=== PATIENT | female | born 1975 | race Caucasian/White ===

== ENCOUNTER → 2018-02-11 | Outpatient (CLI) | payer BC ==
--- NOTE | 2018-02-11 17:43 | Diagnostic Imaging Report ---
INDICATION: Abdominal pain, nausea and vomiting. COMPARISON: None. FINDINGS: Two views of the abdomen demonstrate moderate constipation without obstruction or ileus. There is no free air. Osseous structures are normal. IMPRESSION: Moderate constipation without obstruction or free air. Dictated by: Dictated on workstation # [id number]
== END ==
LOC: RAD 16:26
PROVIDERS: ATTEND Nurse Practitioner Family
DX: K59.00 Constipation, unspecified (principal); R11.2 Nausea with vomiting, unspecified
CPT/HCPCS: 74018

== ENCOUNTER 2021-05-06 17:47 | Observation (INO) | payer BC ==
[~2021-05-06] VITALS: Ht 154 cm; Wt 73.6 kg
[2021-05-06 18:27] LABS: BASOPHILS % (AUTO) 0 % (0-10); EOSINOPHILS # (AUTO) 0.1 10^3/uL (0.0-0.3); EOSINOPHILS % (AUTO) 1 % (0-10); HEMATOCRIT 40 % (35-52); HEMOGLOBIN 13.8 g/dL (11.5-16.0); LYMPHOCYTES # (AUTO) 4.2 10^3/uL (1.0-4.0); LYMPHOCYTES % (AUTO) 44 % (12-44); MEAN CORPUSCULAR HEMOGLOBIN 31 pg (25-34); MEAN CORPUSCULAR HGB CONC 34 g/dL (32-36); MEAN CORPUSCULAR VOLUME 91 fL (80-99); MEAN PLATELET VOLUME 11.5 fL (9.0-12.2); MONOCYTES # (AUTO) 0.5 10^3/uL (0.0-1.0); MONOCYTES % (AUTO) 5 % (0-12); NEUTROPHILS # (AUTO) 4.8 10^3/uL (1.8-7.8); NEUTROPHILS % (AUTO) 50 % (42-75); PLATELET COUNT 254 10^3/uL (130-400); WHITE BLOOD COUNT 9.7 10^3/uL (4.3-11.0)
[2021-05-06] MEDS ORDERED: ONDANSETRON 4 MG/2 ML (SDV) Z0FRAN IVP ONE (18:30)
[2021-05-06] MEDS ORDERED: KETOROLAC 30 MG/ML VIAL IVP ONE (18:30)
[2021-05-06] MEDS ORDERED: LACTATED RINGERS 1,000 ML IV ONE (18:30)
[2021-05-06 18:32] LABS: ALBUMIN 4.1 GM/DL (3.2-4.5); POTASSIUM 3.1 MMOL/L (3.6-5.0)
[2021-05-06 18:33] LABS: CALCIUM 9.5 MG/DL (8.5-10.1)
[2021-05-06 18:35] LABS: TOTAL PROTEIN 7.5 GM/DL (6.4-8.2)
[2021-05-06 18:37] LABS: BILIRUBIN,TOTAL 0.4 MG/DL (0.1-1.0)
[2021-05-06 18:38] LABS: CREATININE SERUM 1.19 MG/DL (0.60-1.30)
[2021-05-06 18:41] LABS: MAGNESIUM 1.9 MG/DL (1.6-2.4)
--- NOTE | 2021-05-06 18:53 | Diagnostic Imaging Report ---
INDICATION: Chest pain. COMPARISON: None available. TECHNIQUE: Single radiograph of the chest dated May 06, 2021. FINDINGS: The cardiac silhouette is within normal limits in size. No significant pulmonary vascular congestion. The lungs are clear. No pleural effusion. No pneumothorax. No acute osseous abnormality. IMPRESSION: No acute cardiopulmonary abnormality. Dictated by: Dictated on workstation # [id number]
[2021-05-06 19:14] LABS: PROTHROMBIN TIME PATIENT 13.3 SEC (12.2-14.7)
[2021-05-06] MEDS ORDERED: KCL 10 MEQ TAB (MICRO K) PO ONE (19:15)
--- NOTE | 2021-05-06 19:16 | ED Chest Pain ---
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 FELT LIKE SHE WAS GOING TO PASS OUT. AFTER STING. ON ADMIT C/O CHEST PAIN. ON ADMIT SHE APPEAR ANXIOUS. NO SOB. MONITOR SR. 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 The incident happened about 1 hour prior to arrival. After being stung she developed lightheadedness, diaphoresis, shortness of breath, chest pain, and nausea. She has some mild lingering chest pain at this time but other symptoms have subsided. Patient has been working outdoors on the farm when the incident occurred. She has no known cardiopulmonary problems. She denies any prior anaphylactic reactions to insect stings. She has history of von Willebrand's disease. Allergies and Home Medications Allergies Coded Allergies: codeine (Unverified Allergy, Mild, 12/04/09) Patient Home Medication List Home Medication List Reviewed: Yes Review of Systems Review of Systems Constitutional: see HPI EENTM: No Symptoms Reported Respiratory: See HPI Cardiovascular: See HPI Gastrointestinal: No Symptoms Reported Genitourinary: No Symptoms Reported Musculoskeletal: no symptoms reported Skin: see HPI Psychiatric/Neurological: No Symptoms Reported Endocrine: No Symptoms Reported Hematologic/Lymphatic: No Symptoms Reported Past Drfpbyj-Rtzkbo-Vntyoo Hx Patient Social History Tobacco Use?: No Substance use?: No Alcohol Use?: No Immunizations Up To Date First/Initial COVID19 Vaccinat: SEP Second COVID19 Vaccination Alex: OCT COVID19 Vaccine Sas Developer: VASHTI Past Medical History Surgeries: No Respiratory: No Cardiac: No Neurological: No : No Reproductive Disorders: No Genitourinary: No Gastrointestinal: No Musculoskeletal: No Endocrine: No HEENT: No Cancer: No Psychosocial: No Integumentary: No Blood Disorders: Yes (Von Willebrand's disease) Physical Exam Vital Signs Vital Signs - First Documented 05/06/21 17:47 Temp 35.0 Pulse 68 Resp 18 B/P (MAP) 115/72 (86) Pulse Ox 99 O2 Delivery Room Air Capillary Refill : Less Than 3 Seconds Height, Weight, BMI Height: '" Weight: lbs. oz. 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 Skin: Normal Color, Warm/Dry, Other (Large welt on the left lateral upper thigh with small blistering hemorrhagic center) Progress/Results/Core Measures Results/Orders Lab Results Laboratory Tests Test 05/06/21 04:26 05/06/21 17:50 05/06/21 18:54 05/06/21 20:50 Range/Units Serum Test, Qualitative NEGATIVE NEGATIVE White Blood Count 9.7 4.3-11.0 10^3/uL Red Blood Count 4.42 3.80-5.11 10^6/uL Hemoglobin 13.8 11.5-16.0 g/dL Hematocrit 40 35-52 % Mean Corpuscular Volume 91 80-99 fL Mean Corpuscular Hemoglobin 31 25-34 pg Mean Corpuscular Hemoglobin Concent 34 32-36 g/dL Red Cell Distribution Width 12.8 10.0-14.5 % Platelet Count 254 130-400 10^3/uL Mean Platelet Volume 11.5 9.0-12.2 fL Immature Granulocyte % (Auto) 0 % Neutrophils (%) (Auto) 50 42-75 % Lymphocytes (%) (Auto) 44 12-44 % Monocytes (%) (Auto) 5 0-12 % Eosinophils (%) (Auto) 1 0-10 % Basophils (%) (Auto) 0 0-10 % Neutrophils # (Auto) 4.8 1.8-7.8 10^3/uL Lymphocytes # (Auto) 4.2 H 1.0-4.0 10^3/uL Monocytes # (Auto) 0.5 0.0-1.0 10^3/uL Eosinophils # (Auto) 0.1 0.0-0.3 10^3/uL Basophils # (Auto) 0.0 0.0-0.1 10^3/uL Immature Granulocyte # (Auto) 0.0 0.0-0.1 10^3/uL Sodium Level 140 135-145 MMOL/L Potassium Level 3.1 L 3.6-5.0 MMOL/L Chloride Level 105 98-107 MMOL/L Carbon Dioxide Level 18 L 21-32 MMOL/L Anion Gap 17 H 5-14 MMOL/L Blood Urea Nitrogen 16 7-18 MG/DL Creatinine 1.19 0.60-1.30 MG/DL Estimat Glomerular Filtration Rate 49 BUN/Creatinine Ratio 13 Glucose Level 164 H 70-105 MG/DL Calcium Level 9.5 8.5-10.1 MG/DL Corrected Calcium 9.4 8.5-10.1 MG/DL Magnesium Level 1.9 1.6-2.4 MG/DL Total Bilirubin 0.4 0.1-1.0 MG/DL Aspartate Amino Transf (AST/SGOT) 17 5-34 U/L Alanine Aminotransferase (ALT/SGPT) 17 0-55 U/L Alkaline Phosphatase 52 40-136 U/L Myoglobin 54.8 10.0-92.0 NG/ML Troponin I < 0.028 0.037 H <0.028 NG/ML Total Protein 7.5 6.4-8.2 GM/DL Albumin 4.1 3.2-4.5 GM/DL Prothrombin Time 13.3 12.2-14.7 SEC INR Comment 1.0 0.8-1.4 Activated Partial Thromboplast Time 28 24-35 SEC My Orders Orders - ISAIAH ROYAL MD Cbc With Automated Diff (05/06/21 18:19) Magnesium (05/06/21 18:19) Chest 1 View, Ap/Pa Only (05/06/21 18:19) Ekg Tracing (05/06/21 18:19) Comprehensive Metabolic Panel (05/06/21 18:19) Myoglobin Serum (05/06/21 18:19) Protime With Inr (05/06/21 18:19) Partial Thromboplastin Time (05/06/21 18:19) O2 (05/06/21 18:19) Monitor-Rhythm Ecg Trace Only (05/06/21 18:19) Ed Iv/Invasive Line Start (05/06/21 18:19) Troponin I (05/06/21 18:19) Ondansetron Injection (Zofran Injectio (05/06/21 18:30) Ketorolac Injection (Toradol Injection) (05/06/21 18:30) Lactated Ringers (Lr 1000 Ml Iv Solution (05/06/21 18:30) Potassium Chloride (Tablet) (Klor Con Ta (05/06/21 19:15) Troponin I (05/06/21 20:50) Hcg,Qualitative Serum (05/06/21 21:50) Aspirin Chewable Tablet (Baby Aspirin Ch (05/06/21 22:00) Medications Given in ED Current Medications Medications Dose Ordered Sig/Keagan Route Start Time Stop Time Status Last Admin Dose Admin Aspirin 324 mg ONCE ONCE PO 05/06/21 22:00 05/06/21 22:01 DC 05/06/21 22:07 324 MG Vital Signs/I&O 05/06/21 17:47 Temp 35.0 Pulse 68 Resp 18 B/P (MAP) 115/72 (86) Pulse Ox 99 O2 Delivery Room Air 05/07/21 00:00 Intake Total 1000 ml Balance 1000 ml Blood Pressure Mean: 86 Progress Progress Note : Progress Note Patient was seen and examined. Due to the chest pain that did not seem co nsistent with symptoms of a wasp sting, chest pain work-up was pursued. Initial work-up was unremarkable and chest pain dissipated after use of Toradol. She was hydrated with IV fluids as her mucous membranes were dry. Potassium was replaced with a liter of LR and oral tablets. 4-hour troponin was obtained and was slightly elevated. Patient was given aspirin. Lovenox was not administered due to her von Willebrand's disease. Case was discussed with Dr. Bowens and Dr. Suh, and patient was admitted. Initial ECG Impression Date: May 06, 2021 Initial ECG Impression Time: 18:23 Initial ECG Rate: 76 Initial ECG Rhythm: Normal Sinus Initial ECG Intervals: Normal Initial ECG Impression: Normal Comment Normal sinus rhythm with no ST elevation or depression. No abnormal intervals or axis deviation. Diagnostic Imaging Diagonstic Imaging: Xray Plain Films/CT/US/NM/MRI: chest Comments NAME: DAR[facility]ASH [facility] REC#: [id number] PT STATUS: REG ER : 1975 PHYSICIAN: ISAIAH ROYAL MD ADMIT DATE: 05/06/21/ER Signed Date of Exam:05/06/21 CHEST 1 VIEW, AP/PA ONLY INDICATION: Chest pain. COMPARISON: None available. TECHNIQUE: Single radiograph of the chest dated May 06, 2021. FINDINGS: The cardiac silhouette is within normal limits in size. No significant pulmonary vascular congestion. The lungs are clear. No pleural effusion. No pneumothorax. No acute osseous abnormality. IMPRESSION: No acute cardiopulmonary abnormality. Dictated by: Dictated on workstation # [id number] Dict: 05/06/21 1848 Trans: 05/06/212006 [id number] Interpreted by: LUKE PATEL MD Electronically signed by: LUKE PATEL MD 05/06/212006 Departure Communication (Admissions) Time/Spoke to Admitting Phy: 22:15 Dr. Bowens Time/Spoke to Consulting Phy: 22:13 Dr. Suh Impression Primary Impression: Chest pain Qualified Codes: R07.9 - Chest pain, unspecified Additional Impression: Insect sting Qualified Codes: T63.481A - Toxic effect of venom of other arthropod, accidental (unintentional), initial encounter Disposition: ADMITTED INPATIENT Condition: Improved Admissions Decision to Admit Reason: Admit from ER (General) Decision to Admit/Date: May 07, 2021 Time/Decision to Admit Time: 22:10 Departure-Patient Inst. Referrals: HESHAM BOWENS DO (PCP) Primary Care Physician TRISTAN MENDIOLA APRN (Family) Primary Care Physician ISAIAH ROYAL MD May 06, 2021 19:16
[2021-05-06] MEDS ORDERED: ASPIRIN 81 MG CHEW (CHILDREN'S ASA) PO ONE (22:00)
[2021-05-06 23:55] VITALS: BP 154/90
[2021-05-07] MEDS ORDERED: NITROGLYCERIN 0.4 MG SL TABS BTL 25'S SL PRN (00:15)
[2021-05-07] MEDS ORDERED: morphine INJ 4 MG/ML 1 ML (VIAL/SYRINGE) IV PRN (00:15)
[2021-05-07] MEDS ORDERED: PATIENT MAY USE OWN MEDS, ALL MC SCH (00:15)
[2021-05-07] MEDS ORDERED: ONDANSETRON 4 MG/2 ML (SDV) Z0FRAN IVP PRN (00:15)
[2021-05-07 00:51] VITALS: BP 130/82
[2021-05-07 04:41] VITALS: BP 119/68
[2021-05-07 05:04] LABS: TRIGLYCERIDES 80 MG/DL (<150); VLDL CHOLESTEROL 16 MG/DL (5-40)
[2021-05-07 05:09] LABS: CHOLESTEROL 153 MG/DL (< 200); HDL CHOLESTEROL 34 MG/DL (40-60)
[2021-05-07 08:00] VITALS: BP 121/70
[2021-05-07] MEDS ORDERED: CATHETER FLUSH 10 ML SYR IV PRN (09:00)
[2021-05-07] MEDS ORDERED: ASPIRIN E.C. 81 MG (ECOTRIN) TAB PO SCH (09:00)
--- NOTE | 2021-05-07 09:08 | Consultation-Cardiology ---
HPI-Cardiology Cardiology Consultation Date of Consultation 05/07/21 Date of Admission Time Seen by Provider: 09:05 Indication: Chest pain HPI 45 years old lady with no significant past medical history, had a bee sting yesterday while mowing the lawn, try to continue mowing then she started to get lightheaded, became dizzy short of breath and diaphoretic and started to have chest pain described as pressure-like over her chest. Persisted until she arrived to the ER and started on IV fluid, patient reported that chest pain resolved without nitroglycerin, no similar episodes in the past. No history of allergy to bee sting Home Medications & Allergies Allergies: Coded Allergies: codeine (Unverified Allergy, Mild, 12/04/09) Home Medication List Reviewed: Yes AWJ-Lsuxqm-Yxhngs Hx Patient Social History Marital Status: Employed/Student: employed Have you traveled recently?: No Alcohol Use?: Yes Past Medical History No known past medical history Family Medical History Family Medical Hx Father has history of coronary artery disease in his 60s Review of Systems-General Review of Systems Constitutional: see HPI; No chills; diaphoresis, dizziness; No fever, No malaise, No weakness, No weight gain, No weight loss, No other EENTM: see HPI, no symptoms reported Respiratory: no symptoms reported, see HPI; No cough, No dyspnea on exertion, No hemoptysis, No orthopnea, No phlegm; short of breath; No stridor, No wheezing, No other Cardiovascular: see HPI, chest pain; No edema, No Hx of Intervention, No palpitations, No syncope, No vascular heart diseas, No other Gastrointestinal: no symptoms reported, see HPI Genitourinary: no symptoms reported, see HPI Musculoskeletal: no symptoms reported, see HPI Skin: see HPI Psychiatric/Neurological: No Symptoms Reported, See HPI Reviewed Test Results Reviewed Test Results Lab Laboratory Tests Test 05/06/21 17:50 05/06/21 18:54 05/06/21 20:50 05/07/21 04:26 Range/Units White Blood Count 9.7 4.3-11.0 10^3/uL Red Blood Count 4.42 3.80-5.11 10^6/uL Hemoglobin 13.8 11.5-16.0 g/dL Hematocrit 40 35-52 % Mean Corpuscular Volume 91 80-99 fL Mean Corpuscular Hemoglobin 31 25-34 pg Mean Corpuscular Hemoglobin Concent 34 32-36 g/dL Red Cell Distribution Width 12.8 10.0-14.5 % Platelet Count 254 130-400 10^3/uL Mean Platelet Volume 11.5 9.0-12.2 fL Immature Granulocyte % (Auto) 0 % Neutrophils (%) (Auto) 50 42-75 % Lymphocytes (%) (Auto) 44 12-44 % Monocytes (%) (Auto) 5 0-12 % Eosinophils (%) (Auto) 1 0-10 % Basophils (%) (Auto) 0 0-10 % Neutrophils # (Auto) 4.8 1.8-7.8 10^3/uL Lymphocytes # (Auto) 4.2 H 1.0-4.0 10^3/uL Monocytes # (Auto) 0.5 0.0-1.0 10^3/uL Eosinophils # (Auto) 0.1 0.0-0.3 10^3/uL Basophils # (Auto) 0.0 0.0-0.1 10^3/uL Immature Granulocyte # (Auto) 0.0 0.0-0.1 10^3/uL Sodium Level 140 135-145 MMOL/L Potassium Level 3.1 L 3.6-5.0 MMOL/L Chloride Level 105 98-107 MMOL/L Carbon Dioxide Level 18 L 21-32 MMOL/L Anion Gap 17 H 5-14 MMOL/L Blood Urea Nitrogen 16 7-18 MG/DL Creatinine 1.19 0.60-1.30 MG/DL Estimat Glomerular Filtration Rate 49 BUN/Creatinine Ratio 13 Glucose Level 164 H 70-105 MG/DL Calcium Level 9.5 8.5-10.1 MG/DL Corrected Calcium 9.4 8.5-10.1 MG/DL Magnesium Level 1.9 1.6-2.4 MG/DL Total Bilirubin 0.4 0.1-1.0 MG/DL Aspartate Amino Transf (AST/SGOT) 17 5-34 U/L Alanine Aminotransferase (ALT/SGPT) 17 0-55 U/L Alkaline Phosphatase 52 40-136 U/L Myoglobin 54.8 10.0-92.0 NG/ML Troponin I < 0.028 0.037 H < 0.028 <0.028 NG/ML Total Protein 7.5 6.4-8.2 GM/DL Albumin 4.1 3.2-4.5 GM/DL Prothrombin Time 13.3 12.2-14.7 SEC INR Comment 1.0 0.8-1.4 Activated Partial Thromboplast Time 28 24-35 SEC Triglycerides Level 80 <150 MG/DL Cholesterol Level 153 < 200 MG/DL LDL Cholesterol Direct 119 1-129 MG/DL VLDL Cholesterol 16 5-40 MG/DL HDL Cholesterol 34 L 40-60 MG/DL Physical Exam Physical Exam Vital Signs Vital Signs - First Documented 05/06/21 17:47 Temp 35.0 Pulse 68 Resp 18 B/P (MAP) 115/72 (86) Pulse Ox 99 O2 Delivery Room Air Capillary Refill : Less Than 3 Seconds Height, Weight, BMI Height: '" Weight: lbs. oz. 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 No acute EKG changes. Echocardiogram was normal, planning to evaluate stress test Shortness of breath after bee sting probably allergic reaction. Feeling better at this time. Continue to monitor Family history of atherosclerosis Allergy to codeine MARGARET LAKHANI MD May 07, 2021 09:08
[2021-05-07 09:37] VITALS: BP 132/95
--- NOTE | 2021-05-07 11:10 | Cardiology Stress Test Report ---
Stress Test Report Date of Procedure/Referring: Date of Procedure: May 07, 2021 PCP Tiffani Boewns DO Admitting Physician Tiffani Bowens DO Indications: CP Baseline Heart Rate: 80 Baseline Blood Pressure: Blood Pressure Systolic: 132 Blood Pressure Diastolic: 95 Vital Signs Date Time Temp Pulse Resp B/P (MAP) Pulse Ox O2 Delivery O2 Flow Rate FiO2 05/06/21 17:47 35.0 68 18 115/72 (86) 99 Room Air Baseline Vital Signs Vital Signs Date Time Temp Pulse Resp B/P (MAP) Pulse Ox O2 Delivery O2 Flow Rate FiO2 05/06/21 17:47 35.0 68 18 115/72 (86) 99 Room Air Baseline EKG: Baseline EKG: NSR Summary: After explaining the procedure and details to the patient, she signed the consent and was brought to the stress nuclear laboratory. Patient exercised on standard Gadiel protocol, EKG, heart rate and blood pressure were monitored continuously, resting and stress doses of radio tracer were injected, imaging was acquired and reviewed in the short axis, horizontal long axis and vertical long axis views Patient was able to exercise for a total of 8 minutes on Gadiel protocol, METs 9.7 Maximum heart rate 154 Maximum blood pressure 146/77 Stress EKG, Minimal nondiagnostic changes Recovery EKG, Return to baseline TID: 0.93 SSS: 4 SDS: 3 EF: 62 Conclusion: 1. Good exercise tolerance for a total of 8 minutes on standard Gadiel protocol, 9.7 METS achieving 88% of maximal expected heart rate 2. Appropriate heart rate and blood pressure response to exercise return to baseline during recovery 3. No significant EKG changes with exercise return to baseline during recovery 4. Extracardiac attenuation with mild decrease uptake at the base of the anterior wall with subtle reversibility, probably secondary to breast at tenuation, no significant ischemia or infarction on SPECT images 5. Normal left ventricular size, EF 62% MARGARET LAKHANI MD May 07, 2021 11:10
[2021-05-07] MEDS ORDERED: PHEN37.58 PO (11:25)
[2021-05-07] MEDS ORDERED: LORA10TA7 PO (11:25)
[2021-05-07] MEDS ORDERED: ACET325T38 PO (11:25)
[2021-05-07 12:00] VITALS: BP 138/83
[2021-05-07] MEDS ORDERED: EPIN0.3P3 IJ (12:37)
--- NOTE | 2021-05-10 10:36 | Physician Query-Final Dx ---
RONIT RENEE 05/10/21 1036: Final Diagnosis Give Final Diagnosis Please give Final Diagnosis KEITH BROCK 05/11/21 1408: RONIT RENEE May 10, 2021 10:36 KEITH BROCK May 11, 2021 14:08
--- NOTE | 2021-05-16 18:15 | Short Stay Summary ---
History of Present Illness History of Present Illness Reason for visit/HPI This is a 45 year old female who presented to the emergency room after being stung by a bee and then experiencing dizziness, chest pain, diaphoresis and nausea. She was found to be having an allergic reaction to the bee sting but her troponin-I was mildly elevated. Her chest pain resolved on its own without nitro but it was decided to admit her for further monitoring and evaluation. Date of Admission May 06, 2021 at 22:15 Date of Discharge May 07, 2021 at 13:00 Time Seen by Provider: 12:30 Attending Physician Tiffani Simpson DO Admitting Physician Tiffani Simpson DO Consult Allergies and Home Medications Allergies Coded Allergies: codeine (Unverified Allergy, Mild, 12/04/09) Patient Home Medication List Home Medication List Reviewed: Yes Acetaminophen (Tylenol) 325 Mg Tablet, 650 MG PO Q6H PRN for PAIN-MILD (1-4), (Reported) Entered as Reported by: NETO PERES on 05/07/211124 Last Action: Reviewed Epinephrine (Epipen 2-Wayne) 0.3 Mg/0.3 Ml Auto.injct, 0.3 MG IJ PRN Prescribed by: TIFFANI SIMPSON on 05/07/21 1237 Loratadine (Loratadine) 10 Mg Tablet, 10 MG PO DAILY PRN for ALLERGIES, (Reported) Entered as Reported by: NETO PERES on 05/07/211124 Last Action: Reviewed Phentermine HCl (Phentermine HCl) 37.5 Mg Tablet, 37.5 MG PO DAILY, (Reported) Entered as Reported by: NETO PERES on 05/07/211124 Last Action: Reviewed Past Elweeef-Kzqzem-Espnrd Hx Patient Social History Marrital Status: Employed/Student: employed Have you traveled recently?: No Alcohol Use?: Yes Pt feels they are or have been: No Surgeries No Respiratory No Cardiovascular No Neurological No Reproductive System : No Hx Reproductive Disorders: No Genitourinary No Gastrointestinal No Musculoskeletal No Endocrine History of Endocrine Disorders: No HEENT History of HEENT Disorders: No Cancer No Psychosocial History of Psychiatric Problem: No Integumentary History of Skin or Integumenta: No Blood Transfusions History of Blood Disorders: Yes (Von Willebrand's disease) Review of Systems Constitutional: weakness EENTM: No see HPI, No no symptoms reported, No ear discharge, No hearing loss, No ear pain, No blurred vision, No double vision, No eye pain, No tearing, No vision loss, No dental problems, No hoarseness, No mouth pain, No mouth swelling, No epistaxis, No nose congestion, No nose pain, No throat pain, No throat swelling, No other Cardiovascular: chest pain Gastrointestinal: nausea Genitourinary: No no symptoms reported, No see HPI, No decreased output, No discharge, No dysuria, No frequency, No hematuria, No hesitancy, No incontinence, No nocturia, No pain, No other Musculoskeletal: muscle weakness Skin: rash Psychiatric/Neurological: Denies No Symptoms Reported, Denies See HPI, Denies Anxiety, Denies Depressed, Denies Emotional Problems, Denies Headache, Denies Numbness, Denies Paresthesia, Denies Pre-Existing Deficit, Denies Seizure, Denies Tingling, Denies Tremors, Denies Weakness, Denies Other Physical Exam Vital Signs Capillary Refill : Less Than 3 Seconds Height, Weight, BMI Height: '" Weight: lbs. oz. kg; 31.03 BMI Method: General Appearance: No Apparent Distress HEENT: Normal ENT Inspection Neck: Normal Inspection, Non Tender, Supple Respiratory: Lungs Clear Cardiovascular: Regular Rate, Rhythm Gastrointestinal: Normal Bowel Sounds, Non Tender, Soft Rectal: Deferred Back: No CVA Tenderness Extremity: Non Tender, No Calf Tenderness, No Pedal Edema Neurologic/Psychiatric: Alert, Oriented x3 Skin: Warm/Dry Clinical Quality Measures Admission Status Admission Status: Observation Short Stay Diagnosis Discharge Diagnosis-Short Stay Final Discharge Diagnosis: 1. Chest Pain with elevated troponin-I due to vasovagal reaction after allergic reaction to be sting--negative ECHO and negative stress test 2. Allergic Reaction to Bee Sting Conclusion Conclusion/Plan This is a 45 year old female who presented to the emergency room after being stung by a bee and then experiencing dizziness, chest pain, diaphoresis and na usea. She was found to be having an allergic reaction to the bee sting but her troponin-I was mildly elevated. Her chest pain resolved on its own without nitro but it was decided to admit her for further monitoring and evaluation. She had no further chest pain. Her repeat troponin-I was negative. Her ECHO was normal as well as a normal stress test. She will be sent home with [facility] for any further bee sting exposure and is instructed to use benadryl prn for bee stings as well. TIFFANI SIMPSON DO May 16, 2021 18:15
== END 2021-05-07 13:08 | disposition home or self-care (01) ==
LOC: EDUNIT# 17:47 → ER 17:51 → 4TH 22:15 → UNDOADMOB 22:15 → 4TH 23:55 → UNDODISOB 05-07 13:00
PROVIDERS: ADMIT Family Medicine; ATTEND Family Medicine
DX: T63.441A Toxic effect of venom of bees, accidental (unintentional), initial encounter (principal); R07.9 Chest pain, unspecified; R51.9 Headache, unspecified; R74.8 Abnormal levels of other serum enzymes; Z79.899 Other long term (current) drug therapy; Z82.49 Family history of ischemic heart disease and other diseases of the circulatory system
CPT/HCPCS: 71045; 78452; 80053; 80061; 83735; 83874; 84484 ×2; 84703; 85025; 85610; 85730; 93005 ×2; 93017; 93041; 93306; 96374; 96375; 99284; A9502; G0378; 36415

== ENCOUNTER 2023-03-07 08:17 | Emergency (ER) | payer BC ==
[~2023-03-07] VITALS: Ht 154 cm; Wt 61.0 kg
[~2023-03-07 08:17] MED LIST: ACET325T38 PO; EPIN0.3P3 IJ; LORA10TA7 PO; PHEN37.58 PO
[2023-03-07] MEDS ORDERED: LACTATED RINGERS 1,000 ML IV STA (08:32)
[2023-03-07] MEDS ORDERED: L.E.T. SOLUTION 3 ML SYR TOP ONE (08:45)
[2023-03-07] MEDS ORDERED: TETANUS,DIPTH,PERTUSS P/F (BOOSTRIX) 0.5 ML VIAL IM ONE (08:45)
--- NOTE | 2023-03-07 08:46 | ED General ---
General Chief Complaint: Laceration Stated Complaint: STUNG BY WASPS | PASSED OUT | HIT HEAD Nursing Triage Note: ARRIVED VIA AMB TO ROOM 07. PT STATES SHE WAS STUNG BY A WASP ON HER LEFT LOWER LEG AT 7AM. PT WAS TRYING TO ADMINISTER EPI PIN SHE PASSED OUT AND HIT HER HEAD ON THE KITCHEN FLOOR CAUSING A LACERATION. Source of Information: Patient Exam Limitations: No Limitations History of Present Illness Date Seen by Provider: Mar 07, 2023 Time Seen by Provider: 08:25 Initial Comments Here with report of being stung by a wasp on the left lower leg. She did have a problem with wasp sting previously or bee sting previously. [place] the wasp came out of one of the pipes on the gate and stung her. She is able to make her way back to the house and then started feeling weak. She tried to get her EpiPen and ultimately was able to do that but she is not sure that it fired right. During this process she passed out and hit the back of her head. She ultimately was able to get the EpiPen to work she thinks. She feels weak currently but a little better. Does have a laceration to the posterior scalp with bleeding controlled. States last time this happened a few years ago she had to get some IV fluid and then she was better and she was found to have lower potassium at that time. She is unsure about her tetanus shot. Denies nausea, vomiting, fever, breathing problems or chest pain currently. Timing/Duration: 1/2 Hour Severity: Moderate Associated Systoms: No Chest Pain, No Cough, No Fever/Chills, No Headaches, No Nausea/Vomiting, No Shortness of Air; Weakness Allergies and Home Medications Allergies Coded Allergies: codeine (Unverified Allergy, Mild, 12/04/09) Patient Home Medication List Home Medication List Reviewed: Yes Acetaminophen (Tylenol) 325 Mg Tablet, 650 MG PO Q6H PRN for PAIN-MILD (1-4), (Reported) Entered as Reported by: NETO PERES on 05/07/21 1125 Epinephrine (Epipen 2-Wayne) 0.3 Mg/0.3 Ml Auto.injct, 0.3 MG IJ PRN Prescribed by: HESHAM SIMPSON on 05/07/21 1237 Loratadine (Loratadine) 10 Mg Tablet, 10 MG PO DAILY PRN for ALLERGIES, (Reported) Entered as Reported by: NETO PERES on 05/07/211124 Phentermine HCl (Phentermine HCl) 37.5 Mg Tablet, 37.5 MG PO DAILY, (Reported) Entered as Reported by: NETO PERES on 05/07/211124 Review of Systems Review of Systems Constitutional: see HPI; No chills, No fever EENTM: No mouth swelling, No nose congestion, No throat swelling Respiratory: No cough, No short of breath Cardiovascular: No chest pain, No edema Gastrointestinal: No nausea, No vomiting Genitourinary: no symptoms reported Musculoskeletal: No back pain, No neck pain Skin: lesions; No pruritus, No rash Psychiatric/Neurological: Denies Headache; Weakness Past Mnsxipm-[id number]-[id number] Hx Patient Social History Tobacco Use?: No Substance use?: No Alcohol Use?: No Immunizations Up To Date First/Initial COVID19 Vaccinat: SEP Second COVID19 Vaccination Alex: Oct COVID19 Vaccination Date: SEP Past Medical History Surgeries: No Respiratory: No Cardiac: No Neurological: No Reproductive Disorders: No Genitourinary: No Gastrointestinal: No Musculoskeletal: No Endocrine: No HEENT: No Cancer: No Psychosocial: No Integumentary: No Blood Disorders: Yes (Von Willebrand's disease) Family Medical History Reviewed Nursing Family Hx No Pertinent Family Hx Physical Exam Vital Signs Vital Signs - First Documented 03/07/23 08:20 Temp 35.5 Pulse 75 Resp 16 Pulse Ox 100 O2 Delivery Room Air Capillary Refill : Less Than 3 Seconds Height, Weight, BMI Height: '" Weight: lbs. oz. kg; 25.00 BMI Method: General Appearance: WD/WN, Mild Distress HEENT: PERRL/EOMI, TMs Normal, Pharynx Normal Neck: Full Range of Motion, Normal Inspection, Non Tender, Supple Respiratory: Lungs Clear, Normal Breath Sounds Cardiovascular: Regular Rate, Rhythm, No Murmur Gastrointestinal: Non Tender, Soft Extremity: Normal Range of Motion, Non Tender Neurologic/Psychiatric: Alert, Oriented x3, No Motor/Sensory Deficits Skin: Warm/Dry; No Rash; Other (3 cm lesion posterior scalp just left of midline with bleeding controlled. Sting site to lower leg is not significantly inflamed currently.) Procedures/Interventions Wound Location: Scalp Other Wound Location Posterior scalp left of midline Wound Length (cm): 5 Wound's Depth, Shape: irregular Wound Explored: contaminated Irrigated w/ Saline (ccs): 150 Betadine Prep?: Yes (Jose A) Anesthesia: 1% Lidocaine Volume Anesthetic (ccs): 6 Wound Debrided: minimal Staple Repair: Stapler 35W Number of Sutures: 8 Layer Closure?: 1 Number Deep Layer Sutures: 0 Sterile Dressing Applied?: Yes Progress Wound copiously cleaned after application of topical LET. Wound noted to be more extensive than initially thought and lidocaine 1% infiltrated around wound. Wound copiously scrubbed and irrigated with normal saline. Closed with stapler with good approximation. Bleeding controlled without complications. Covered with antibiotic ointment and dressing. Progress/Results/Core Measures Suspected Sepsis SIRS Temperature: Pulse: 75 Respiratory Rate: 16 Laboratory Tests 03/07/23 08:54: White Blood Count 16.3H Blood Pressure / Mean: Laboratory Tests 03/07/23 08:54: Creatinine 1.08, Platelet Count 128L Results/Orders Lab Results Laboratory Tests Test 03/07/23 08:54 Range/Units White Blood Count 16.3 H 4.3-11.0 10^3/uL Red Blood Count 5.18 H 3.80-5.11 10^6/uL Hemoglobin 16.6 H 11.5-16.0 g/dL Hematocrit 50 35-52 % Mean Corpuscular Volume 97 80-99 fL Mean Corpuscular Hemoglobin 32 25-34 pg Mean Corpuscular Hemoglobin Concent 33 32-36 g/dL Red Cell Distribution Width 12.6 10.0-14.5 % Platelet Count 128 L 130-400 10^3/uL Mean Platelet Volume 11.2 9.0-12.2 fL Immature Granulocyte % (Auto) 1 % Neutrophils (%) (Auto) 82 H 42-75 % Lymphocytes (%) (Auto) 14 12-44 % Monocytes (%) (Auto) 3 0-12 % Eosinophils (%) (Auto) 0 0-10 % Basophils (%) (Auto) 0 0-10 % Neutrophils # (Auto) 13.3 H 1.8-7.8 10^3/uL Lymphocytes # (Auto) 2.3 1.0-4.0 10^3/uL Monocytes # (Auto) 0.4 0.0-1.0 10^3/uL Eosinophils # (Auto) 0.1 0.0-0.3 10^3/uL Basophils # (Auto) 0.0 0.0-0.1 10^3/uL Immature Granulocyte # (Auto) 0.2 H 0.0-0.1 10^3/uL Neutrophils % (Manual) 78 % Lymphocytes % (Manual) 13 % Monocytes % (Manual) 6 % Eosinophils % (Manual) 0 % Basophils % (Manual) 0 % Band Neutrophils 3 % Clumped Platelets OCCASIONAL Percent Immature Platelet Fraction 12.3 H 0.0-7.6 % Blood Morphology Comment NORMAL Sodium Level 138 135-145 MMOL/L Potassium Level 3.2 L 3.6-5.0 MMOL/L Chloride Level 105 98-107 MMOL/L Carbon Dioxide Level 16 L 21-32 MMOL/L Anion Gap 17 H 5-14 MMOL/L Blood Urea Nitrogen 17 7-18 MG/DL Creatinine 1.08 0.60-1.30 MG/DL Estimat Glomerular Filtration Rate 63 BUN/Creatinine Ratio 16 Glucose Level 175 H 70-105 MG/DL Calcium Level 9.3 8.5-10.1 MG/DL My Orders Orders - ISAC STALLWORTH MD Basic Metabolic Panel (03/07/23 08:32) Cbc With Automated Diff (03/07/23 08:32) Lactated Ringers (Lr 1000 Ml Iv Solution (03/07/23 08:32) Ed Iv/Invasive Line Start (03/07/23 08:32) Let Solution (Let Solution) (03/07/23 08:45) Dipht,Pertuss(Acell),Tet Adult (Boostrix (03/07/23 08:45) Ct Head Wo (03/07/23 08:49) Manual Differential (03/07/23 08:54) Lidocaine 1% Inj 20 Ml (Xylocaine 1% Inj (03/07/23 09:31) Medications Given in ED Current Medications Medications Dose Ordered Sig/Keagan Route Start Time Stop Time Status Last Admin Dose Admin Diphtheria/ Tetanus/Acell Pertussis 0.5 ml ONCE ONCE IM 03/07/23 08:45 03/07/23 08:46 DC 03/07/23 08:41 0.5 ML Lidocaine HCl 20 ml STK-MED ONCE .ROUTE 03/07/23 09:31 03/07/23 09:33 DC 03/07/23 09:47 20 ML Tetracaine/ Epinephrine/ Lidocaine 3 ml ONCE ONCE TOP 03/07/23 08:45 03/07/23 08:46 DC 03/07/23 08:39 3 ML Vital Signs/I&O 03/07/23 08:20 Temp 35.5 Pulse 75 Resp 16 B/P (MAP) Pulse Ox 100 O2 Delivery Room Air Capillary Refill : Less Than 3 Seconds Progress Note : Progress Note Seen and evaluated. Given patient's report of weakness, we will go ahead and get IV and check basic labs and give 1 L LR. I have reviewed previous history when she had lasting in 2020. She had work-up at that time. It was noted that she does have von Willebrand's disease. I did discuss with her about CT of the head given the head injury. Initially she did not want to do that which was reasonable but on finding of the history of von Willebrand's, I think this is more important. I did discuss this with the patient and she agreed and we will go ahead and get CT of her head. Monitor patient. Differential diagnosis includes intracranial hemorrhage, concussion, scalp laceration, electrolyte abnormality, dehydration 0954: CT reviewed by me and shows no intracranial hemorrhage on my interpretation. Radiology report reviewed. Wound cleaned and closed with stapler. I did discuss with the patient and her sister regarding outpatient instructions and return precautions especially in light of concussion and von Willebrand's disease. Both verbalized understanding. Discharged home with return precautions. Patient verbalized understanding instructions and agreement with plan. I will represcribe EpiPen given her wasp allergy and I will prescribe ondansetron for nausea due to concussion concerns. Diagnostic Imaging Diagonstic Imaging: CT Plain Films/CT/US/NM/MRI: head Comments [facility] [place], [place] NAME: [facility] REC#: [id number] PT STATUS: REG ER : 1975 PHYSICIAN: ISAC STALLWORTH MD ADMIT DATE: 03/07/23/ER Draft Date of Exam:03/07/23 CT HEAD WO Clinical Indication: Patient with posterior scalp laceration injury. Patient has history of von Willebrand's disease. Exam: Axial CT scan of the brain without IV contrast with coronal and sagittal reformatted images. Auto Exposure Controls were utilized during the CT exam to meet ALARA standards for radiation dose reduction. Comparison: None Findings: There is no evidence of acute cerebral infarct, intracranial hemorrhage, or gross mass effect. The brain parenchymal volume appears appropriate for patient's age. There is normal black-white matter distinction. There is no significant midline shift or herniation. There is no evidence of hydrocephalus. The basal cisterns are unremarkable. There is a small area of extracranial soft tissue swelling involving left posterior aspect of the head. There is no skull fracture. Otherwise, the skull, extracranial soft tissue, and orbits are unremarkable. The paranasal sinuses are unremarkable. Temporal bones show no significant abnormality. Impression: 1: There is no evidence of acute intracranial process. There is no intracranial hemorrhage. 2: There is a small area of extracranial soft tissue swelling involving left posterior aspect of the head. There is no skull fracture. Dictated on workstation # [id number] Dict: 03/07/23 0913 Trans: 03/07/23 0917 [id number] Interpreted by: ILSA SINGH MD Electronically signed by: Departure Impression Primary Impression: Scalp laceration Qualified Codes: S01.01XA - Laceration without foreign body of scalp, initial encounter Additional Impressions: Concussion Qualified Codes: S06.0X1A - Concussion with loss of consciousness of 30 minutes or less, initial encounter Allergic reaction to wasp sting Disposition: 01 HOME, SELF-CARE Condition: Stable Departure-Patient Inst. Decision time for Depature: 09:56 Referrals: ILANA TRUONG DO (PCP/Family) Primary Care Physician Patient Instructions: Laceration Repair With Mcfall (DC), Concussion in adults, Head injury in adults, Insect Bites and Stings (DC) Add. Discharge Instructions: All discharge instructions reviewed with patient and/or family. Voiced understanding. Mcfall out in 7 days. You may gently rinse and wash your hair but do not soak wound in any body of water. You may use a small ribbon of antibiotic ointment over wound. You may take Tylenol/acetaminophen 1000 mg every 6 hours as needed for pain. You may take ibuprofen 400 mg every 8 hours as needed for pain if the acetaminophen is not working. You need to rest over the next 2 days due to concerns of concussion and avoid strenuous activity or activity that increases your risk for head injury until you are completely healed. Take medications as directed. Keep EpiPen with you especially when you are working outside. This has been represcribed. Continue potassium as previously prescribed as you are slightly low on potassium today. Return for increasing headache, vomiting greater than 3 times in 12 hours, weakness, vision or balance problems, mental status changes or other concerns as needed. Follow-up with your doctor next week for recheck and further evaluation as needed. Scripts Ondansetron (Ondansetron Odt) 4 Mg Tab.rapdis 4 MG PO Q6H PRN for NAUSEA/VOMITING, #8 TAB 0 Refills Prov: ISAC STALLWORTH MD 03/07/23 Epinephrine (Epipen 2-Wayne) 0.3 Mg/0.3 Ml Auto.injct 0.3 MG IJ ONCE, #1 PACKET 1 Refill Follow package directions for use if stinging occurs. Prov: ISAC STALLWORTH MD 03/07/23 ISAC STALLWORTH MD Mar 07, 2023 08:46
[2023-03-07 09:00] LABS: BASOPHILS % (AUTO) 0 % (0-10); HEMOGLOBIN 16.6 g/dL (11.5-16.0); MEAN CORPUSCULAR VOLUME 97 fL (80-99); MONOCYTES # (AUTO) 0.4 10^3/uL (0.0-1.0); MONOCYTES % (AUTO) 3 % (0-12)
[2023-03-07 09:02] LABS: EOSINOPHILS # (AUTO) 0.1 10^3/uL (0.0-0.3); EOSINOPHILS % (AUTO) 0 % (0-10); HEMATOCRIT 50 % (35-52); LYMPHOCYTES # (AUTO) 2.3 10^3/uL (1.0-4.0); LYMPHOCYTES % (AUTO) 14 % (12-44); MEAN CORPUSCULAR HEMOGLOBIN 32 pg (25-34); MEAN CORPUSCULAR HGB CONC 33 g/dL (32-36); MEAN PLATELET VOLUME 11.2 fL (9.0-12.2); NEUTROPHILS # (AUTO) 13.3 10^3/uL (1.8-7.8); NEUTROPHILS % (AUTO) 82 % (42-75); PLATELET COUNT 128 10^3/uL (130-400); WHITE BLOOD COUNT 16.3 10^3/uL (4.3-11.0)
[2023-03-07 09:13] LABS: POTASSIUM 3.2 MMOL/L (3.6-5.0)
[2023-03-07 09:14] LABS: CALCIUM 9.3 MG/DL (8.5-10.1)
--- NOTE | 2023-03-07 09:17 | Diagnostic Imaging Report ---
Clinical Indication: Patient with posterior scalp laceration injury. Patient has history of von Willebrand's disease. Exam: Axial CT scan of the brain without IV contrast with coronal and sagittal reformatted images. Auto Exposure Controls were utilized during the CT exam to meet ALARA standards for radiation dose reduction. Comparison: None Findings: There is no evidence of acute cerebral infarct, intracranial hemorrhage, or gross mass effect. The brain parenchymal volume appears appropriate for patient's age. There is normal black-white matter distinction. There is no significant midline shift or herniation. There is no evidence of hydrocephalus. The basal cisterns are unremarkable. There is a small area of extracranial soft tissue swelling involving left posterior aspect of the head. There is no skull fracture. Otherwise, the skull, extracranial soft tissue, and orbits are unremarkable. The paranasal sinuses are unremarkable. Temporal bones show no significant abnormality. Impression: 1: There is no evidence of acute intracranial process. There is no intracranial hemorrhage. 2: There is a small area of extracranial soft tissue swelling involving left posterior aspect of the head. There is no skull fracture. Dictated by: Dictated on workstation # [id number]
[2023-03-07 09:18] LABS: CREATININE SERUM 1.08 MG/DL (0.60-1.30)
[2023-03-07 09:23] LABS: BAND NEUTROPHILS 3 %; BASOPHILS % (MANUAL) 0 %; EOSINOPHILS % (MANUAL) 0 %; LYMPHOCYTES % (MANUAL) 13 %; MONOCYTES % (MANUAL) 6 %; NEUTROPHILS % (MANUAL) 78 %; PLATELET CLUMPS OCCASIONAL; RBC MORPH NORMAL
[2023-03-07] MEDS ORDERED: LIDOCAINE 1% INJ 20 ML VIAL ONE (09:31)
[2023-03-07] MEDS ORDERED: EPIN0.3P3 IJ (10:03)
[2023-03-07] MEDS ORDERED: ONDA4TAB11 PO (10:03)
[2023-03-07 10:08] VITALS: BP 146/84
== END 2023-03-07 10:08 | disposition home or self-care (01) ==
LOC: EDUNIT# 08:17 → ER 08:18
DX: S06.0XAA Concussion with loss of consciousness status unknown, initial encounter (principal); S01.01XA Laceration without foreign body of scalp, initial encounter; T63.481A Toxic effect of venom of other arthropod, accidental (unintentional), initial encounter; Z23 Encounter for immunization; W22.09XA Striking against other stationary object, initial encounter; Y92.000 Kitchen of unspecified non-institutional (private) residence as the place of occurrence of the external cause
CPT/HCPCS: 36415; 70450; 80048; 85007; 85027; 90715

== ENCOUNTER 2023-03-14 13:38 | Emergency (ER) | payer BC ==
[~2023-03-14] VITALS: Ht 154.9 cm; Wt 66.0 kg
[~2023-03-14 13:38] MED LIST changes: +ONDA4TAB11 PO
[2023-03-14 14:02] VITALS: BP 128/78
== END 2023-03-14 14:02 | disposition home or self-care (01) ==
LOC: EDUNIT# 13:38 → ER 13:40
DX: Z48.02 Encounter for removal of sutures (principal)